=== PATIENT | female | born 1935 | race Caucasian/White ===

== ENCOUNTER 2016-11-05 16:04 | Emergency (ER) | payer SELFPAY ==
[~2016-11-05] VITALS: Ht 147.3 cm; Wt 56.5 kg
[2016-11-05 16:36] VITALS: Ht 147.3 cm; Wt 56.5 kg
== END 2016-11-05 16:56 | disposition left against medical advice (07) ==
LOC: E/R 16:04
DX: Z53.21 Procedure and treatment not carried out due to patient leaving prior to being seen by health care provider (principal)